=== PATIENT | female | born 1965 | race Caucasian/White ===

== ENCOUNTER 2022-05-25 07:01 | Outpatient (CLI) | payer OTHER, SELFPAY ==
--- NOTE | 2022-05-25 07:15 | CRLHL7_ITS ---
For Patients: As a result of the Century Cures Act, medical imaging exams and procedure reports are released immediately into your electronic medical record. You may view this report before your referring provider. If you have questions, please contact your health care provider. INDICATION: Left leg pain. COMPARISON: 02/29/2020. TECHNIQUE: Sagittal T1, T2, and STIR sequences. Axial T1 and T2 weighted sequences. FINDINGS: Compared to the previous exam, interval postop changes of diskectomy interbody fusion L3-4 and L4-5 with posterior mary and transpedicular screw fixation L3-L5. Improved to near anatomic alignment at L3-4 with reduction of previously noted anterolisthesis. Laminectomies at L3-4 and L4-5. Edema and likely granulation tissue within the posterior soft tissues of the operative bed. T12-L1: No spinal canal or neural foraminal narrowing. L1-2: Mild disc generation. No spinal canal or neural foraminal narrowing. L2-3: Mild disc degeneration diffuse disc bulge centered to the left. No narrowing of spinal canal. Mild narrowing of the left neural foramen. No narrowing of the right neural foramen. L3-4: Postoperative changes. Spinal canal is decompressed by laminectomy. No neural foraminal narrowing. L4-5: Postoperative changes. Spinal canal is decompressed by laminectomy. No neural foraminal narrowing. L5-S1: Disc degeneration and diffuse disc bulge. Superimposed central left paracentral disc herniation measures approximately 3 mm in short axis. Mild narrowing of the spinal canal. Left subarticular recess narrowing with potential impingement of the traversing left S1 nerve root. No narrowing of the right neural foramen. Mild narrowing of the left neural foramen. Mild facet arthropathy. Mild degenerative changes of the SI joints. IMPRESSION: 1. Interval postop changes L3-L5. 2. Normal alignment. No fractures 3. At L2-3, mild narrowing of the left neural foramina 4. At L5-S1, disc degeneration and diffuse disc bulge. Central and left paracentral disc herniation. Mild narrowing of the spinal canal. Left subarticular recess narrowing with potential impingement of the traversing left S1 nerve root. Mild narrowing of the left neuroforamen Dictated by Paulie Shin MD @ 05/25/2022 12:57:45 PM (Electronically Signed)
== END 2022-05-25 07:02 | disposition home or self-care (01) ==
LOC: MRI 07:03
PROVIDERS: PCP Internal Medicine; Visit Provider Orthopaedic Surgery Orthopaedic Surgery of the Spine
DX: M79.605 Pain in left leg (principal); M51.26 Other intervertebral disc displacement, lumbar region; M51.37 Other intervertebral disc degeneration, lumbosacral region; M51.27 Other intervertebral disc displacement, lumbosacral region
CPT/HCPCS: 72148

== ENCOUNTER 2022-07-12 09:17 | Outpatient (CLI) | payer OTHER, SELFPAY ==
[2022-07-12 12:13] LABS: Cholesterol* 211 mg/dL (90-199); Glucose* 107 mg/dL (60-115); HDL Cholesterol* 47 mg/dL (>=50); LDL Cholesterol Calculated 144 mg/dL (<100); Triglycerides* 100 mg/dL (40-149)
== END 2022-07-12 09:18 | disposition home or self-care (01) ==
LOC: NFLDREF 09:18
PROVIDERS: PCP Internal Medicine; Visit Provider Internal Medicine
DX: E78.5 Hyperlipidemia, unspecified (principal); R73.03 Prediabetes
CPT/HCPCS: 80061; 82947

== ENCOUNTER 2022-11-01 13:02 | Outpatient (CLI) | payer OTHER, SELFPAY ==
--- NOTE | 2022-11-01 13:00 | CRLHL7_ITS ---
For Patients: As a result of the Century Cures Act, medical imaging exams and procedure reports are released immediately into your electronic medical record. You may view this report before your referring provider. If you have questions, please contact your health care provider. BILATERAL SCREENING MAMMOGRAM WITH COMPUTER-AIDED DETECTION AND TOMOSYNTHESIS TECHNIQUE: CC and MLO views were obtained. These mammographic images have been obtained using full-field digital technique. These mammographic images were interpreted with the benefit of computer-aided detection. Breast Tomosynthesis was used in this interpretation. COMPARISON FILM: 05/05/21, 06/26/19, 05/09/18. FINDINGS: There are scattered areas of fibroglandular density IMPRESSION: There is no radiographic evidence for malignancy. ASSESSMENT: BI-RADS Category 1: Negative RECOMMENDATION: Routine screening mammogram in 1 year. A lay language report of this examination will be provided to the patient. Marc Castañeda M.D. Diagnostic Radiologist [email or web address] CHRISTI/Dictated by: Marc Castañeda MD @ 11/02/2022 1:01:00 PM (Electronically Signed)
--- OUTSIDE RECORDS SUMMARY | 2022-11-01 13:05 | XMS_ITS | Continuity of Care Document ---
Author Name Unknown Organization [facility] Address [address] [place] [address] Phone Care Team Providers Care International Bank Manager Name Role Phone Gricel WINKLRE, PhD, Greg Unavailable Unavai lable Allergies, Adverse Reactions, Alerts Substance Reaction Status Criticality amoxicillin rash Active No Information Sulfa (Sulfonamide Antibiotics) rash Active No Information Medications Medication Instructions Dosage Effective Dates (start - stop) Status Comments SEROQUEL (unknown strength) Not Available - Active ALBUTEROL SULFATE (unknown strength) Not Available - Active PAROXETINE HCL (unknown strength) Not Available - Active QVAR REDIHALER (unknown strength) Not Available - Active Procedures Procedure Date Office/Outpatient Visit,Est, Mod 2021 Office/Outpatient Visit,Est, Mod 2020 Office/Outpatient Visit,Est, Mod 2020 Postop Followup Visit TLIF - Includes PSF at the same level De TLIF - Additional Level(s) Includes PSF at the same level Posterior Instrumentation, 3-6 Segments PEEK/ Cage/ Implant, For Interbody Fusio n Autograft, From Same Incision 0 Allograft, Morcelized, and/or BMP Pre Op Office/Outpatient Visit, 020 OFFICE/OUTPATIENT VISIT EST Phone Office/Outpatient Visit,New, Mod 2019 X-Ray Exam Lwr Spine, Min 4 Views Advance Directives Directive Yes / No Effective Date File Name No Information Encounters Encounter Description Practice Location Reason(s) For Visit Diagnoses Date Provider Providers Copied on Encounter Office/Outpat ient Visit,Est, Mod [facility], [address], [place], [place], [id number], [place] tel:[phone] [facility] Arthrodesis status [address] [facility], [address], [place], [address], [place]. [phone] [facility] [address], [address]. tel:[phone] Office/Outpat ient Visit,Est, Mod [facility], [address], [place], [place], [address], [place] tel:[phone] [facility] Arthrodesis status 1 Gricel Garza. [facility], [address], [place], [address], [place]. tel:[phone] Referring Provider: Aleks Walker [facility] [address] [place], [address]. tel:[phone] Office/Outpat ient Visit,Est, Mod [facility], [address], [place], [id number], [place] tel:[phone] [facility] Arthrodesis status [address] [facility], [address], [place], [address], [place]. tel:[phone] Referring Provider: Aleks Walker [facility] [address] [place], [address]. tel:[phone] [facility], [address], [place], [place], [address], [place] tel:[phone] [facility] Arthrodesis status [address] [facility], [address], [place], [address], [place]. tel:[phone] Referring Provider: Aleks Walker [address], [address]. tel:[phone] [facility], [address], [place], [place], [address], [place] tel:[phone] [facility] No Information [address] [facility], [address], [place], [address], [place]. tel:[phone] Referring Provider: Aleks Walker [address], [address]. tel:[phone] Pre Op Office/Outpat ient Visit, [facility], [address], [facility] [place], [id number], [place] tel:[phone] [facility] Spinal stenosis, lumbar region with neurogenic claudication [address] [facility], [address], [place], [address], [place]. [phone] Referring Provider: Aleks Walker [address], [address]. tel:[phone] [facility], [address], [facility] [place], [address], [place] tel:[phone] [facility] No Information [address] [facility], [address], [place], [address], [place]. [phone] Referring Provider: Aleks Walker [address], [address]. tel:[phone] OFFICE/OUTPAT IENT VISIT EST Phone [facility], [address], [place], [place], [id number], [place] tel:[phone] [facility] No Information [address] [facility], [address], [place], [address], [place]. tel:[phone] Referring Provider: Aleks Walker [facility] [address] [place], [address]. tel:[phone] Office/Outpat ient Visit,New, [facility], [address], [place], [address], [place] tel:[phone] [facility] Radiculopathy , lumbar region [address] [facility], [address], [place], [address], [place]. tel:[phone] Referring Provider: Aleks Walker [facility] [address] [place], [address]. tel:[phone] Family History Family Member Type Diagnosis Age At Onset No Information Payers Payer name Insurance type Covered alliance party ID Pro wise(s) [facility] [id number] Social History Type Description Quantity Date Captured Comments Alcohol Use Details Unknown Caffeine Use Details Unknown Tobacco Use Status No Information Smoking Status Former smoker Non-Smoking Tobacco Use Details : No Details Available : No Details Available Sex Female Vital Signs Date / Time: Height Weight BMI Pulse Rate Blood Pressure Temperature Respiratory Rate Body Surface Area Head Circumference Head Circ. Percentile Wt./Shawn. Percentile BMI percentile Pulse Ox Inhaled Ox 8:31 AM 65.00 in 88.451 kg (195.00 lbs) 32.4 5 kg/m eter (2) Chief Complaint And Reason For Visit No Information Reason For Referral Reason For Referral No Information Plan Of Treatment Date Type Action Status No Information History Of Present Illness Encounter Date Complaint History Of Prese nt Illness No Information Functional Status Date Functional Assessmen t No Information Instructions Date Instruction Additional Infor mation No Information Assessments Type Assessment Date assessment Arthrodesis status Patient Care Teams Name Effective Dates (start - stop) Status Members No Information
== END 2022-11-01 13:03 | disposition home or self-care (01) ==
PROVIDERS: PCP Internal Medicine; Visit Provider Internal Medicine
DX: Z12.31 Encounter for screening mammogram for malignant neoplasm of breast (principal)
CPT/HCPCS: 77063; 77067

== ENCOUNTER 2023-10-19 07:56 | Outpatient (CLI) | payer OTHER, SELFPAY ==
--- OUTSIDE RECORDS SUMMARY | 2023-10-20 10:24 | XMS_ITS | Continuity of Care Document ---
Author Organization [facility] Address [address] [place] [address] Phone Care Team Providers Care Furnace Firer Name Role Phone Gricel WINKLER, PhD, Greg Unavailable Unavai lable Allergies, Adverse Reactions, Alerts Substance Reaction Status Criticality amoxicillin rash Active No Information Sulfa (Sulfonamide Antibiotics) rash Active No Information Medications Medication Instructions Dosage Effective Dates (start - stop) Status Comments SEROQUEL (unknown strength) Not Available - Active QVAR REDIHALER (unknown strength) Not Available - Active PAROXETINE HCL (unknown strength) Not Available - Active ALBUTEROL SULFATE (unknown strength) Not Available - Active Procedures [...] C, [address], [place], [place], [id number], [place] tel:[phone] [facility] Arthrodesis status 2 Gricel Garza. [facility] [place], [address], [place], [address], [place]. [phone] Referring Provider: Aleks García, [employer] [facility], [place], [address]. tel:[phone] Office/Outpat ient Visit,Est, Mod [facility], [address], [place], [place], [id number], [place] tel:[phone] [facility] Arthrodesis status 1 Gricel Garza. [facility], [address], [place], [address], [place]. tel:[phone] Referring Provider: [facility], [place], [address]. tel:[phone] Office/Outpat ient Visit,Est, Mod [facility], [address], [place], [place], [address], [place] tel:[phone] [facility] Arthrodesis status 1 Gricel Garza. [facility] [place], [address], [place], [address], [place]. tel:[phone] Referring Provider: [facility] [employer] [facility], [place], [address]. tel:[phone] [facility], [address], [place], [id number], [place] tel:[phone] [facility] Arthrodesis status 1 Gricel Garza. [facility] [place], [address], [place], [address], [place]. [phone] Referring Provider: Giovanni Hsieh [facility], [place], [address]. tel:[phone] [facility], [address], [place], [address], [place] tel:[phone] [facility] No Information 0 Gricel Garza. [facility] [place], [address], [place], [address], [place]. tel:[phone] Referring Provider: Giovanni Hsieh [address], [place], [address]. tel:[phone] Pre Op Office/Outpat ient Visit, [facility], [address], [place], [address], [place] tel:[phone] [facility] Spinal stenosis, lumbar region with neurogenic claudication 0 Gricel Garza. [facility] [place], [address], [place], [address], [place]. [phone] Referring Provider: Giovanni Hsieh [facility], [place], [address]. tel:[phone] [facility], [address], [place], [address], [place] tel:[phone] [facility] No Information 0 Gricel Garza. [facility], [address], [place], [address], [place]. [phone] Referring Provider: Giovanni Hsieh [facility], [place], [address]. tel:[phone] OFFICE/OUTPAT IENT VISIT EST Phone [facility], [address], [place], [address], [place] tel:[phone] [facility] No Information 0 Gricel Garza. [facility], [address], [place], [address], [place]. tel:[phone] Referring Provider: Aleks García, [employer] [facility] [address] , [place], [address]. tel:[phone] Office/Outpat ient Visit,New, Mod [facility], [address], [place], [place], [address], [place] tel:[phone] [facility] Radiculopathy , lumbar region 0 Gricle Garza. [facility], [address], [place], [address], [place]. tel:[phone] Referring Provider: Aleks García [employer] [facility] [address] , [place], [address]. tel:[phone] Family History Family Member Type Diagnosis Age At Onset No Information Payers Payer name Insurance type Covered libertarian ID Pro wise(s) [id number] Social History Type Description Quantity Date Captured [...] For Referral Reason For Referral No Information History Of Present Illness Encounter Date Complaint History Of Prese nt Illness No Information Functional Status Date Functional Assessmen t No Information Instructions Date Instruction Additional Infor mation No Information Assessments Type Assessment Date assessment Arthrodesis status Patient Care Teams Name Effective Dates (start - stop) Status Members No Information
--- OUTSIDE RECORDS SUMMARY | 2023-10-20 10:24 | XMS_ITS | Clinical Summary ---
Author Organization [employer] [facility] Address [place], [place] [address] Care Team Providers Care Shape Brick Molder Name Role Phone Shazia Sloan MD Primary Care Provider [phone] Allergies Active Allergy Reactions Criticality Noted Date Comments Amoxicillin Rash 12/22/2007 Sulfa (Sulfonamide Antibiotics) Rash 05/2007 Medications Medication Sig Dispensed Refills Start Date End Date Status albuterol HFA (PRO-AIR,VENTOLIN,PRO VENTIL) 90 mcg/actuation inhaler Inhale 2 Puffs by mouth 4 times daily if needed. 0 01/13/2015 Active QNASL 80 mcg/actuation HFAA Inhale 1 Tropic in the nostril(s) once daily if needed (for seasonal allergy relief). 07/04/2017 Active PARoxetine (PAXIL) 40 mg tablet Take 60 mg by mouth at bedtime. Uses 1?? of the 40 mg tablet for 60 mg dose Active beclomethasone 40 mcg/each actuation (QVAR) 40 mcg inhaler Inhale 2 Puffs by mouth 2 times daily. Active metroNIDAZOLE (METROGEL) 1 % gel Apply topically to affected area(s) once daily if needed for Other (Specify) (for rosacea outbreaks). Active QUEtiapine (SEROQUEL) 25 mg tablet Take 25 mg by mouth at bedtime. 06/28/2021 Active Active Problems Problem Noted Date Diagnosed Date Borderline hyperlipidemia 05/19/2020 Cough variant asthma 05/19/2020 History of hypothyroidism 05/19/2020 Lumbar stenosis 05/19/2020 Obstructive sleep apnea syndrome 04/10/2012 Obesity 03/03/2011 Depression 12/02/2008 Irritable bowel syndrome 12/02/2008 Migraine headache 12/02/2008 Immunizations Name Administration Dates Next Due DTP 07/22/1995,06/18/1967,1965 ,1965 HepA-HepB (Twinrix) 06/29/2007,01/26/2007,200606/28/2007 MMR 05/23/1969,10/06/1966 Oral Polio Vaccine 05/04/1967,02/26/1966, 966,1965 Td (Age >=7 Years) 01/21/1981 Social History Tobacco Use Types Packs/Day Years Used Date Smoking Tobacco: Former Cigarettes Q uit: 05/23/2000 Smokeless Tobacco: Never Tobacco Cessation:Counseling Given: Yes Alcohol Use Standard Drinks/Week Comments Yes 0 (1 standard drink = 0.6 oz pur e alcohol) social- 1 to 2 on the weekends Social Connections Answer Date Recorded Frequency of Communication with Friends and Fami ly Not on file 05/13/2021 Financial Resource Strain Answer Date R ecorded Difficulty of Paying Living Expenses Not on file 05/13/2021 Difficulty of Paying Living Expenses Not on file 05/13/2021 Sex and Gender Information Value Date Recorded Sex Assigned at Female 04/10/2020 8:48 AM NEW ORDER CLERK Gender Identity Female 04/10/2020 8:48 AM NEW ORDER CLERK Sexual Orientation Straight 04/10/2020 8: 48 AM NEW ORDER CLERK Obstetrics History Last Filed Vital Signs Vital Sign Reading Time Taken Comments Blood Pressure 125/80 08/19/2021 8:36 AM CDT tow er Pulse 82 08/19/2021 8:36 AM CDT Temperature 37 ??C (98.6 ??F) 05/22/2020 9:23 AM NEW ORDER CLERK Respiratory Rate 16 05/22/2020 9:23 AM NEW ORDER CLERK Oxygen Saturation 97% 08/19/2021 8:36 AM CDT Inhaled Oxygen Concentration - - Weight 91.7 kg (202 lb 3.2 oz) 08/19/2021 8:36 A M CDT Height 165.1 cm (5' 5) 05/19/2020 8:30 AM NEW ORDER CLERK Body Mass Index 33.65 05/19/2020 8:30 AM NEW ORDER CLERK Plan of Treatment Health Maintenance Due Date Last Done Comments Tdap 1976 Depression screening for age 12+ 1977 HIV for age 15-65 1980 Hepatitis C screening for age 18-79 1983 Tetanus booster 01/21/1991 01/21/1981 Lipids for age 45-75 2010 Mammogram for age 45-75 2010 07/11/19 09, 04/06/2005, 04/06/2005 Zoster (shingles) series for age 50+ (1 of 2) 2015 Colonoscopy through age 75 12/27/2017 12/28/2007 BMI (ht and wt on same day) for age 18+ 08/01/2018 08/01/2017, 09/15/2015 Pap test for age 21-65 06/26/2022 , 06/26/2019, 07/28/2015, Additional history exists COVID-19 vaccine series (2022-24 season) 2023 08/31/2020, 08/10/2020 Influenza for age 50-64 01/22/2024 Pneumococcal series for age 6-64 Aged Out No longer eligible based on patient's age to complete this topic Medical Devices Implanted Type Area Universal Branch Consultant Device Identifier Shelf Expiration Date Model / Serial / Lot [id number] 1-4mm 60cc Medtronic Fine Canclls Freeze Dried Implanted:Qty: 1 on 05/19/2020 by Greg Monsalve MD at [facility] Explanted:at [facility] (Quantity not on file) Spine Medtronic Spine/Ortho 10/29/2024 [id number] / [id number] / Bone 1-4mm 30cc Medtronic Chips Canclls Freeze Dried - [id number] Implanted:Qty: 1 on 05/19/2020 by Greg Monsalve MD at [facility] Explanted:at [facility] (Quantity not on file) Spine Medtronic Spine/Ortho 11/25/2024 [id number] / [id number] / Creo Threaded Locking Clip Implanted:Qty: 6 on 05/19/2020 by Greg Monsalve MD at [facility] Spine [id number] / / Description:CREO THREADED LO CKING CLIP 7.5x45mm Creo Threaded Implanted:Qty: 2 on 05/19/2020 by Greg Monsalve MD at [facility] Spine [id number] / / Description:7.5X45MM CREO TH READED 6.5x45mm Creo Threaded Implanted:Qty: 1 on 05/19/2020 by Greg Monaslve MD at [facility] Spine [id number] / / Description:6.5X45MM CREO TH READED 7.5x50mm Creo Threaded Implanted:Qty: 3 on 05/19/2020 by Greg Monsalve MD at [facility] Spine [id number] / / Description:7.5X50MM CREO TH READED 70mm Cvd Ti Alloy Juan C Implanted:Qty: 2 on 05/19/2020 by Greg Monsalve MD at [facility] Spine [id number] / / Description:70MM CVD TI ALLO Y JUAN C Sustain Arch 9mm Interbody Implanted:Qty: 2 on 05/19/2020 by Greg Monsalve MD at [facility] Spine [id number] / / Description:SUSTAIN ARCH 9MM INTERBODY Procedures Procedure Name Priority Date/Time Associated Diagnosis Comments GIS COORDINATOR THIN PREP PAP SCREEN IMAGED Routine 06/26/2019 8:15 AM NEW ORDER CLERK SCAN-MAMMOGRAPHY REPORT 07/11/2008 12:00 AM NEW ORDER CLERK from Last 3 Months or Most Recently Relevant to Health Maintenance Results * GIS COORDINATOR THIN PREP PAP SCREEN IMAGED (06/26/2019 8:15 AM NEW ORDER CLERK) Case Report Gynecologic Cytology Report ? Case: [id number] ? Authorizing Provider: ??Shazia Sloan MD ?Collected: ? 06/26/2019 0815 ? Ordering Location: ? [facility] ?Received: ?06/26/2019 1742 ? First Screen: ?Rosy Lee ? Specimen: ?GIS COORDINATOR ThinPrep Vial Screening, Cervical/Vaginal ? 07/05/2019 10:55 AM [facility] INTERPRETATION/ RESULT NEGATIVE FOR INTRAEPITHELIAL LESION OR MALIGNANCY (NIL) (none) 07/05/2019 10:55 AM [facility] IMEN ADEQUACY Satisfactory for evaluation Endocervical cells cannot be evaluated due to severe atrophy 07/05/2019 10:55 AM [facility] HPV REQUEST HPV and PAP 07/05/2019 10:55 AM [facility] Date of LMP 07/05/2019 10:55 AM [facility] Comment:2004 Last Pap Date 07/28/2015 07/05/2019 10:55 AM [facility] Last Pap Result NIL 0 10:55 AM [facility] Menstrual Status 07/05/2019 10:55 AM [facility] Comment:menopause Additional Information 07/05/2019 10:55 AM [facility] Comment: Interpreted at [facility] Tactilize [facility] - [address], [place] [address] Automated Review Successful 07/05/2019 10:55 AM [facility] Comment:Specimen processed s uccessfully by automated congregational care pastor device, ThinPrep Imaging System, [employer] ANCILLARY TESTING GIS COORDINATOR HPV Ordered, Please see separate report 07/05/2019 10:55 AM NEW ORDER CLERK [facility] Note The pap test is a screening technique, not a diagnostic procedure. It is used primarily to screen for squamous cancers and precursor lesions. Published studies have shown that it is subject to both false negative and false positive results. The pap test should not be used as the sole means to diagnose or exclude pre-malignant and malignant lesions. 07/05/2019 10:55 AM NEW ORDER CLERK [facility] Other (Cervical/Vagina l) 06/26/2019 8:15 AM NEW ORDER CLERK 06/26/2019 5:42 PM NEW ORDER CLERK Shazia Sloan MD PATHOLOGY/CYTOLOGY [facility] [address] [place] [address], * SCAN-MAMMOGRAPHY REPORT (07/11/2008 12:00 AM NEW ORDER CLERK) Anatomical Region Laterality Modality Other Narrative Procedure Note Scanner - 07/11/2008 12:00 AM NEW ORDER CLERK Scanner OTHER from Last 3 Months or Most Recently Relevant to Health Maintenance Advance Directives * Full Code (Latest Code Status on File) Date Activated Date Inactivated Comments 05/19/2020 6:13 PM 05/22/2020 12:41 PM Question Answer Comments Code Status Discussion: Per Existing Order Care Teams Shape Brick Molder Relationship Specialty Start Date End Date Shazia Sloan MD [address] [place] [address] PCP - General Internal Medicine 12/26/14
== END 2023-10-19 07:57 | disposition home or self-care (01) ==
LOC: NFLDREF 10-20 10:23
PROVIDERS: PCP Internal Medicine; Referring Provider Internal Medicine; Visit Provider Internal Medicine
DX: E78.5 Hyperlipidemia, unspecified (principal); R73.03 Prediabetes
CPT/HCPCS: 80061; 82947

== ENCOUNTER 2024-01-13 07:45 | Outpatient (CLI) | payer OTHER, SELFPAY ==
--- OUTSIDE RECORDS SUMMARY | 2024-01-13 07:47 | XMS_ITS | Clinical Summary ---
Author Organization [facility] Address [address] [place] [address] Care Team Providers Care Job Analysis Manager Name Role Phone Unavailable Primary Care Provider Unavailabl e Source Comments Patient records contain information from all sites at [facility]. For routine questions regarding patient records, call [phone] during business hours, M-F 8:00 AM - 5:00 PM Central Time. Record requests for emergency care only can be directed to [phone] at any time.[facility] Allergies Active Allergy Reactions Criticality Noted Date Comments Amoxicillin Rash 12/22/2007 Penicillin V Rash Low 10/24/2023 Sulfa (Sulfonamide Antibiotics) Rash 05/2007 Medications Medication Sig Dispensed Refills Start Date End Date Status albuterol (PROVENTIL HFA,VENTOLIN HFA) 90 mcg/actuation inhaler Inhale 2 puffs as needed. 01/13/2015 Active QVAR REDIHALER 40 mcg/actuation inhaler 2 (two) times a day. 03/07/2018 Active QNASL 80 mcg/actuation nasal spray 2 (two) times a day. 03/07/2018 Active cefuroxime (CEFTIN) 500 mg tablet daily. 04/10/2018 Active oxyCODONE (ROXICODONE) 5 mg immediate release tablet as needed. 03/31/2018 Active PARoxetine (PAXIL) 40 mg tablet Take 40 mg by mouth daily. 1.5 tabs 10/26/2014 Active metroNIDAZOLE (METROGEL) 1 % gel Apply topically every other day. 60 g 06/13/2019 Active QUEtiapine (SEROquel) 25 mg tablet Take 25 mg by mouth at bedtime. 12.5 Half tablet at night 04/12/2021 Active Encounters Date Type Department Care Team Description 11/08/2023 3:15 PM CDT Office Visit Department of Dermatology in [address] [phone] Olu Riojas M.D. Nevi Multiple (Primary Dx); Keratosis Seborrheic Discharge Disposition: Home or Self Care from Last 3 Months Social History Tobacco Use Types Packs/Day Years Used Date Smoking Tobacco: Former Smokeless Tobacco: Never Alcohol Use Standard Drinks/Week Comments Yes 2 (1 standard drink = 0.6 oz pur e alcohol) [facility] Utilities Answer Date Recorded In the past 12 months has e Trampoline, gas, oil, or water [employer] threatened to shut off services in your home? No 11/08/2023 Humiliation, Afraid, Rape, and Kick questionnair e Answer Date Recorded Within the last year, have y ou been afraid of your partner or ex-partner? No 06/16/2021 Within the last year, have y ou been humiliated or emotionally abused in other ways by your partner or ex-partner? No Within the last year, have y ou been kicked, hit, slapped, or otherwise physically hurt by your partner or ex-partner? No 06/16/2021 Within the last year, have y ou been raped or forced to have any kind of sexual activity by your partner or ex-partner? No 06/16/2021 Social Connection and Isolat ion Panel [NHANES] Answer Date Recorded In a typical week, how many times do you talk on the phone with family, friends, or neighbors? More than three times a week 06/16/2021 How often do you get togethe r with friends or relatives? More than three times a week 06/16/2021 How often do you attend chur ch or taoism services? More than 4 times per year 06/16/2021 Do you belong to any clubs o r organizations such as nondenominational groups, unions, fraternal or athletic groups, or school groups? Yes 06/16/2021 How often do you attend meet ings of the clubs or organizations you belong to? More than 4 times per year 06/16/2021 Are you , , di vorced, , never , or living with a partner? 06/16/2021 AUDIT-C Answer Date Recorded Q1: How often do you have a drink containing alc ohol? 2-4 times a month 06/16/2021 Q2: How many drinks containi ng alcohol do you have on a typical day when you are drinking? 1 or 2 06/16/2021 Q3: How often do you have si x or more drinks on one occasion? Less than monthly 06/16/2021 Overall Financial Resource Strain (CARDIA) Answe r Date Recorded How hard is it for you to pa y for the very basics like food, housing, medical care, and heating? Not very hard 06/16/2021 [facility] - Occupational Stress Questionnaire Answer Date Recorded Do you feel stress - tense, restless, nervous, or anxious, or unable to sleep at night because your mind is troubled all the time - these days? Only a little 06/16/2021 Exercise Vital Sign Answer Date Recorde d On average, how many days pe r week do you engage in moderate to strenuous exercise (like a brisk walk)? 2 days 11/08/2023 On average, how many minutes do you engage in exercise at this level? 20 min 11/08/2023 Hunger Vital Sign Answer Date Recorded Within the past 12 months, y ou worried that your food would run out before you got the money to buy more. Never true 11/08/19 24 Within the past 12 months, t he food you bought just didn't last and you didn't have money to get more. Never true 11/08/2023 PRAPARE - Transportation Answer Date Re corded In the past 12 months, has l ack of transportation kept you from medical appointments or from getting medications? No 10/21 In the past 12 months, has l ack of transportation kept you from meetings, work, or from getting things needed for daily living? No 11/08/2023 Nutrition Answer Date Recorded On average, how many serving s of fruits and vegetables do you eat per day (serving size is equal to 1 cup or approximately the size of a tennis ball)? 3-5 11/08/2023 Dental Answer Date Recorded Dental: Regular Dentist Yes 01/20/20 21 Employment Answer Date Recorded Employment status Employed and actively working without restrictions 11/08/2023 Housing Stability Answer Date Recorded What is your living situation today? I have a st ely place to live 11/08/2023 Education Answer Date Recorded What is the highest level of school you have completed or the highest degree you have received? Some college, no degree 01/19/2021 Sex and Gender Information Value Date Recorded Sex Assigned at Female 03/27/2020 6:44 AM FIBER GLASS WORKER Gender Identity Female 03/27/2020 6:44 AM FIBER GLASS WORKER Sexual Orientation Straight 03/27/2020 6: 44 AM FIBER GLASS WORKER Plan of Treatment Health Maintenance Due Date Last Done Comments CT Colonography 1965 Cologuard 1965 Colonoscopy 1965 Colorectal Cancer Screening 1965 FIT 1965 Fasting Glucose for Diabetes Screening 1965 HIV Screening 1965 Hepatitis C Screening 1965 Lipid (Cholesterol) Screening 1965 Mammogram 1965 COVID-19 Vaccine ( season) 2023 08/31/2020, 08/10/2020 Depression Screening (Annual PHQ-2) 05/23/2023 Influenza Vaccine (#1) 2024 , 03/10/2021, 02/21/2020, Additional history exists Cervical Cancer Screening 10/23/2026 10/24/2023, 08/2019 DTaP,Tdap,and Td Vaccines (8 - Td or Tdap) 08/09/2032 08/09/2022, 03/15/2012, 07/16/2002, Additional history exists Hepatitis B Vaccines Completed 06/29/2007, 01/26/2007, 11/07/2006 Pneumococcal vaccine (0-64 years) Aged Out 03/06/2015 No longer eligible based on patient's age to complete this topic Zoster Vaccines Completed 02/21/2020, 06/26/2019 [id number] [place] [id number]
--- OUTSIDE RECORDS SUMMARY | 2024-01-13 07:47 | XMS_ITS | Encounter Summary ---
Author Organization [facility] Address [address] [place] [address] Care Team Providers Care Credit Card Control Clerk Name Role Phone Unavailable Primary Care Provider Unavailabl e Reason for Visit * Reason Comments Follow-up Skin Check * Appointment Request (Routine) - Closed Specialty Diagnoses / Procedures Referred By Isaac gan Referred To Contact Dermatology Referral ID Status Reason Start Date Expiration Date Visits Re quested Visits Authorized [id number] Closed 09/09/2023 09/08/2024 1 1 Encounter Details Date Type Department Care Team (Late st Contact Info) Description 11/08/2023 3:15 PM CDT Office Visit Department of Dermatology in [address] [phone] Olu Riojas M.D. [address] [place] [address] Nevi Multiple (Primary Dx); Keratosis Seborrheic Discharge Disposition: Home or Self Care Social History Tobacco Use Types Packs/Day Years Used Date Smoking Tobacco: Former Smokeless Tobacco: Never Alcohol Use Standard Drinks/Week Comments Yes 2 (1 standard drink = 0.6 oz pur e alcohol) [facility] Utilities Answer Date Recorded In the past 12 months has th e electric, gas, oil, or water company threatened to shut off services in your [...] 06/16/2021 How often do you attend chur or scientologist services? More than 4 times per year 06/16/2021 Do you belong to any clubs o r organizations such as adventist groups, unions, fraternal or athletic groups, or [...] care, and heating? Not very hard 06/16/2021 [facility] of Occupat ional Health - Occupational Stress [...] Date Recorded Dental: Regular Dentist Yes 01/20/20 Employment Answer Date Recorded Employment status Employed and actively working without restrictions 11/08/2023 Housing Stability Answer Date Recorded What is your living situation today? [facility] 11/08/2023 Education Answer Date Recorded What is the highest level of school you have completed or the highest degree you have received? Some college, no degree 01/19/2021 Sex and Gender Information Value Date Recorded Sex Assigned at Female 03/27/2020 6:44 AM DAM OPERATOR Gender Identity Female 03/27/2020 6:44 AM DAM OPERATOR Sexual Orientation Straight 03/27/2020 6: 44 AM DAM OPERATOR documented as of this encounter Progress Notes * Olu Riojas M.D. - 11/08/2023 3:15 PM CDT SUBJECTIVE CHIEF COMPLAINT / REASON FOR VISIT Full skin cancer screening HISTORY OF PRESENT ILLNESS Mariposa Rizzo is a pleasant 58 y.o. female who presents for a full skin cancer screening. The patient was last seen by me in Dermatology clinic on . She denies a personal history of skin cancer or family history for melanoma. She uses sunscreen. She denies any new or changing lesionstoday. MEDICAL HISTORY Negative for skin cancer FAMILY HISTORY Negative for melanoma OBJECTIVE PHYSICAL EXAMINATION General: Awake, alert, in no acute distress, and with appropriate affect. Eyes: No scleral injection or icterus. No eyelid abnormalities. Lymph: No lower extremity edema. Skin: I have examined the scalp, face, neck, chest, abdomen, back, bilateral upper extremities, andbilateral lower extremities. My scribe (Yesica) served as a cracking still operator for the entirety of the exam. Examination of the face, trunk and extremities reveals multiple benign-appearing nevi, lentigines and seborrheic keratoses. Examination today reveals no suspicious lesions for skin cancer. ASSESSMENT / PLAN #1 Face, trunk and extremities: Multiple nevi and lentigines The ABCDE criteria for melanoma was reviewed with the patient. None of the patient's nevi reach theclinical threshold for biopsy. I recommend continued sun protection, self-skin examinations, and observation. Should any of the patient's nevi change in size, color, texture, or shape or develop symptoms such as itching or bleeding, I recommend an immediate return visit for reassessment. #2 Face, trunk and extremities: Seborrheic keratosis The benign nature of the skin lesion(s) was discussed with the patient. No treatment is required. Irecommend continued observation. Should this lesion change in size, color, texture, or shape or develop symptoms such as itching or bleeding, I recommend an immediate return visit for reassessment. PATIENT EDUCATION: Ready to learn. No apparent learning barriers were identified. Learning preferences include listening. Explained diagnosis and treatment plan; patient/guardian of patient expressed understanding of the content. By signing my name below, I, Yesica Darnell, attest that this documentation has been prepared underthe direction and in the presence of Olu Riojas M.D. Electronically Signed: june Luo. 11/08/2023. 3:47 PM CDT. Olu Mcclure M.D., personally performed the services described in this documentation. All medical record entries made by the scribe were at my direction and in my presence. I have reviewed the chart and discharge instructions (if applicable) and agree that the record reflects my personal performance and is accurate and complete. Olu Riojas M.D. Scribed for Olu Riojas M.D. by Yesica Darnell, on 11/08/2023, 4:03 PM CDT. documented in this encounter Plan of Treatment Not on file documented as of this encounter Visit Diagnoses Diagnosis Nevi Multiple- Primary Keratosis Seborrheic documented in this encounter
--- OUTSIDE RECORDS SUMMARY | 2024-01-13 07:47 | XMS_ITS | Clinical Summary ---
Author Organization [facility] Address [place], [place] [address] Care Team Providers Care Foil Cutter Name Role Phone Shazia Sloan MD Primary Care Provider [phone] Allergies Active Allergy Reactions Criticality Noted Date Comments Amoxicillin Rash 12/22/2007 Sulfa (Sulfonamide Antibiotics) Rash 05/2007 Medications Medication Sig Dispensed Refills Start Date End Date Status albuterol HFA (PRO-AIR,VENTOLIN,PRO VENTIL) 90 mcg/actuation inhaler Inhale 2 Puffs by mouth 4 times daily if needed. 0 01/13/2015 Active QNASL 80 mcg/actuation HFAA Inhale 1 [place] in the nostril(s) once daily if needed [...] Irritable bowel syndrome 12/02/2008 Migraine headache 12/02/2008 Encounters Date Type Department Care Team Description 10/24/2023 Lab Requisition [facility] [phone] Shazia Sloan MD from Last 3 Months Immunizations Name Administration Dates Next Due DTP [...] Sex Assigned at Female 04/10/2020 8:48 AM SENIOR LEAD SOFTWARE ENGINEER Gender Identity Female 04/10/2020 8:48 AM SENIOR LEAD SOFTWARE ENGINEER Sexual Orientation Straight 04/10/2020 8: 48 AM SENIOR LEAD SOFTWARE ENGINEER Obstetrics History Last Filed Vital Signs Vital Sign Reading Time Taken Comments Blood Pressure 125/80 08/19/2021 8:36 AM CDT tow er Pulse 82 08/19/2021 8:36 AM CDT Temperature 37 ??C (98.6 ??F) 05/22/2020 9:23 AM SENIOR LEAD SOFTWARE ENGINEER Respiratory Rate 16 05/22/2020 9:23 AM SENIOR LEAD SOFTWARE ENGINEER Oxygen Saturation 97% 08/19/2021 8:36 AM CDT Inhaled Oxygen Concentration - - Weight 91.7 kg (202 lb 3.2 oz) 08/19/2021 8:36 A M CDT Height 165.1 cm (5' 5) 05/19/2020 8:30 AM SENIOR LEAD SOFTWARE ENGINEER Body Mass Index 33.65 05/19/2020 8:30 AM SENIOR LEAD SOFTWARE ENGINEER Plan of Treatment Health Maintenance Due Date [...] day) for age 18+ 08/01/2018 08/01/2017, 09/15/2015 COVID-19 vaccine series ( season) 2023 08/31/2020, 08/10/2020 Influenza for age 50-64 01/22/2024 Pap test for age 21-65 10/23/2026 , 10/24/2023, 06/26/2019, Additional history exists Pneumococcal series for age 6-64 Aged Out No longer eligible based on patient's age to complete this topic Medical Devices Implanted Type Area Plant Protection Supervisor Device Identifier Shelf Expiration Date Model / Serial / Lot [id number] ne 1-4mm 60cc Medtronic Fine Canclls Freeze Dried Implanted:Qty: 1 on 05/19/2020 by Greg Monsalve MD at [facility] Explanted:at [facility] (Quantity not on file) Spine Medtronic Spine/Ortho 10/29/2024 [id number] / [id number] / Bone 1-4mm 30cc Medtronic Chips Canclls Freeze Dried - [id number] Implanted:Qty: 1 on 05/19/2020 by Greg Monsalve MD at [facility] Explanted:at [facility] (Quantity not on file) Spine Medtronic Spine/Ortho 11/25/2024 [id number] / [id number] / Creo Threaded Locking Clip Implanted:Qty: 6 on 05/19/2020 by Greg Monsalve MD at [facility] Spine [id number] / / Description:CREO THREADED LO CKING CLIP 7.5x45mm Creo Threaded Implanted:Qty: 2 on 05/19/2020 by Greg Monsalve MD at [facility] Spine [id number] / / Description:7.5X45MM CREO TH READED 6.5x45mm Creo Threaded Implanted:Qty: 1 on 05/19/2020 by Greg Monsalve MD at [facility] Spine [id number] / / Description:6.5X45MM CREO TH READED 7.5x50mm Creo Threaded Implanted:Qty: 3 on 05/19/2020 by Greg Monsalve MD at [facility] Spine [id number] / / Description:7.5X50MM CREO TH READED 70mm Cvd Ti Alloy Juan C Implanted:Qty: 2 on 05/19/2020 by Greg Monsalve MD at [facility] Spine [id number] / / Description:70MM CVD TI ALLO Y JUAN C Sustain Arch 9mm Interbody Implanted:Qty: 2 on 05/19/2020 by Greg Monsalve MD at [facility] Spine [id number] / / Description:SUSTAIN ARCH 9MM INTERBODY Procedures Procedure Name Priority Date/Time Associated Diagnosis Comments LAB TRACKING EVENT Routine 10/24/2023 8: 30 AM CDT EP TECHNOLOGIST THIN PREP PAP SCREEN IMAGED Routine 10/24/2023 8:30 AM CDT HPV THIN PREP Routine 10/24/2023 8:30 AM CDT SCAN-MAMMOGRAPHY REPORT 07/11/2008 12:00 AM SENIOR LEAD SOFTWARE ENGINEER from Last 3 Months or Most Recently Relevant to Health Maintenance Results * LAB TRACKING EVENT (10/24/2023 8:30 AM CDT) Other (Other) Client Collect / Unknown 10/24/2023 8:30 AM CDT 10/24/2023 3:37 PM CDT Shazia Slaon MD LAB BILL ONLY [facility] [address] [place] [address], [place] * EP TECHNOLOGIST THIN PREP PAP SCREEN IMAGED (10/24/2023 8:30 AM CDT) Case Report Gynecologic Cytology Report ? Case: [id number] ? Authorizing Provider: ??Shazia Sloan MD ?Collected: ? 10/24/2023 0830 ? Ordering Location: ? [facility] ?Received: ?10/25/2023 0908 ? First Screen: ?Ayah Parada ? Specimen: ?EP TECHNOLOGIST ThinPrep Vial Screening, Cervical ? 11/02/2023 9:34 AM CDT [facility] INTERPRETATION/ RESULT NEGATIVE FOR INTRAEPITHELIAL LESION OR MALIGNANCY (NIL) (none) 11/02/2023 9:34 AM CDT [facility] IMEN ADEQUACY Satisfactory for evaluation Endocervical component present 11/02/2023 9:34 AM CDT [facility] HPV REQUEST HPV and PAP 11/02/2023 9:34 AM CDT [facility] Last Pap Date 06/26/2019 11/02/2023 9:34 AM CDT [facility] Abnormal Pap or Afton Bx in last 5 years No 11/02/2023 9:34 AM CDT [facility] Menstrual Status Hysterectomy-cerv ix present 11/02/2023 9:34 AM CDT [facility] Afton Bx Done Today No 11/02/2023 9:34 AM CDT [facility] Additional Information 11/02/2023 9:34 AM CDT [facility] Comment: Interpreted at [facility] - [address] [place] [address] [address] [address], [place] [address] Automated Review Successful 11/02/2023 9:34 AM CDT [facility] Comment:Specimen processed s uccessfully by automated community service patrol officer device, ThinPrep Imaging System, [employer] ANCILLARY TESTING EP TECHNOLOGIST HPV Ordered, Please see separate report 11/02/2023 9:34 AM CDT [facility] Note The pap test is a screening technique, not a diagnostic procedure. It is used primarily to screen for squamous cancers and precursor lesions. Published studies have shown that it is subject to both false negative and false positive results. The pap test should not be used as the sole means to diagnose or exclude pre-malignant and malignant lesions. 11/02/2023 9:34 AM CDT [facility] Other (Cervical) 10/24/2023 8:30 AM CDT 10/25/2023 9:08 AM CDT Shazia Sloan MD PATHOLOGY/CYTOLOGY [facility] [address] [place] [address], * HPV HIGH RISK (10/24/2023 8:30 AM CDT) TYPE 16 Negative Negative 10/27/2023 2:18 PM CDT [facility] TYPE 18 Negative Negative 10/27/2023 2:18 PM CDT [facility] OTHER HIGH RISK TYPES Negative Negative 10/27/2023 2:18 PM CDT [facility] Other (Cervical) 10/24/2023 8:30 AM CDT 10/25/2023 9:08 AM CDT Narrative [facility] 10/27/2023 2:18 PM CDT HPV types 16, 18, 31, 33, 35, 39, 45, 51, 52, 56, 58, 59, 66 and 68 DNA were undetectable or below the pre-set threshold. Methodology: Harry Mariah 4800 HPV Test Shazia Sloan MD MICROBIOLOGY [facility] [address] [place] [address], * SCAN-MAMMOGRAPHY REPORT (07/11/2008 12:00 AM SENIOR LEAD SOFTWARE ENGINEER) Anatomical Region Laterality Modality Other Narrative Procedure Note Scanner - 07/11/2008 12:00 AM SENIOR LEAD SOFTWARE ENGINEER Scanner OTHER from Last 3 Months or Most Recently Relevant to Health Maintenance Advance Directives * Full Code (Latest Code Status on File) Date Activated Date Inactivated Comments 05/19/2020 6:13 PM 05/22/2020 12:41 PM Question Answer Comments Code Status Discussion: Per Existing Order Care Teams Foil Cutter Relationship Specialty Start Date End Date Shazia Sloan MD [address] [place] [id number] PCP - General Internal Medicine 12/26/14
--- OUTSIDE RECORDS SUMMARY | 2024-01-13 07:47 | XMS_ITS | Referral Summary ---
Author Organization [facility] Address [address] [place] [address] Care Team Providers Care Bilingual Research Interviewer Name Role Phone Unavailable Primary Care Provider Unavailabl e Source Comments Patient records contain information from all sites at [facility]. For routine questions regarding patient records, call [phone] during business hours, M-F 8:00 AM - 5:00 PM Central Time. Record requests for emergency care only can be directed to [phone] at any time.[facility] Encounters Date Type Department Care Team Description 11/08/2023 3:15 PM CDT Office Visit Department of Dermatology in [address] [id number] Olu Riojas M.D. Nevi Multiple (Primary Dx); Keratosis Seborrheic Discharge Disposition: Home or Self Care from Last 3 Months Allergies Active Allergy Reactions Criticality Noted Date [...] 12.5 Half tablet at night 04/12/2021 Active Social History Tobacco Use Types Packs/Day Years Used Date Smoking Tobacco: Former Smokeless Tobacco: Never Alcohol Use Standard Drinks/Week Comments Yes 2 (1 standard drink = 0.6 oz pur e alcohol) [facility] Utilities Answer Date Recorded In the past 12 months has e [employer], [employer]ood[employer], oil, or water [employer] threatened to shut off services in your [...] How often do you attend chur or holiness services? More than 4 times per year 06/16/2021 Do you belong to any clubs o r organizations such as rastafarian groups, unions, fraternal or athletic groups, or [...] care, and heating? Not very hard 06/16/2021 [facility] [...] your living situation today? I have a [facility] children's place to live 11/08/2023 Education Answer Date Recorded What is the highest level of school you have completed or the highest degree you have received? Some college, no degree 01/19/2021 Sex and Gender Information Value Date Recorded Sex Assigned at Female 03/27/2020 6:44 AM SHEET METAL WORKER MAINTENANCE Gender Identity Female 03/27/2020 6:44 AM SHEET METAL WORKER MAINTENANCE Sexual Orientation Straight 03/27/2020 6: 44 AM SHEET METAL WORKER MAINTENANCE Plan of Treatment Not on file
--- OUTSIDE RECORDS SUMMARY | 2024-01-13 07:47 | XMS_ITS ---
Author Organization [facility] Address [address] [place] [address] Care Team Providers Care Side Stitching Machine Operator Name Role Phone Unavailable Unavailable Unavailable Surgery Details Not on file Complications Check Surgery Details section. Procedure Estimated Blood Loss Check Surgery Details section. Procedure Findings Check Surgery Details section. Procedure Specimens Taken Check Surgery Details section.
--- OUTSIDE RECORDS SUMMARY | 2024-01-13 07:47 | XMS_ITS | Continuity of Care Document ---
Author Organization [facility] Address [address] [place] [address] Phone Care Team Providers Care Supervisor Sunglasses Name Role Phone Gricel WINKLER, PhD, Greg [...] C, [address], [place], [place], [id number], [place] tel:[phone] [facility] Arthrodesis status 2 Gricel Garza. [facility], [address], [place], [address], [place]. [phone] Referring Provider: Aleks García, [facility], [place], [address]. tel:[phone] Office/Outpat ient Visit,Est, Mod [facility] C, [address], [place], [place], [id number], [place] tel:[phone] [facility] Arthrodesis status 1 Gricel Garza. [facility], [address], [place], [address], [place]. tel:[phone] Referring Provider: [facility], [place], [address]. tel:[phone] Office/Outpat ient Visit,Est, Mod [facility], [address], [place], [place], [id number], [place] tel:[phone] [facility] Arthrodesis status 1 Gricel Garza. [facility], [address], [place], [address], [place]. tel:[phone] Referring Provider: Kwabena HsiehZ [facility], [place], [address]. tel:[phone] [facility], [address], [place], [place], [id number], [place] tel:[phone] [facility] Arthrodesis status 1 Gricel Garza. [facility], [address], [place], [address], [place]. tel:[phone] Referring Provider: Giovanni Hsieh [facility], [place], [address]. tel:[phone] [facility], [address], [place], [place], [id number], [place] tel:[phone] [facility] No Information 0 Gricel Garza. [facility], [address], [place], [address], [place]. tel:[phone] Referring Provider: Giovanni Hsieh [address] [employer] [address], [place], [address]. tel:[phone] Pre Op Office/Outpat ient Visit, [facility], [address], [place], [place], [id number], [place] tel:[phone] [facility] Spinal stenosis, lumbar region with neurogenic claudication 0 Gricel Garza. [facility], [address], [place], [address], [place]. [phone] Referring Provider: Giovanni Hsieh [facility], [place], [address]. tel:[phone] [facility], [address], [place], [place], [id number], [place] tel:[phone] [facility] No Information 0 Gricel Garza. [facility], [address], [place], [address], [place]. [phone] Referring Provider: Giovanni Hsieh [facility], [place], [address]. tel:[phone] OFFICE/OUTPAT IENT VISIT EST Phone [facility], [address], [place], [place], [id number], [place] tel:[phone] [facility] No Information 0 Gricel Garza. [facility], [address], [place], [address], [place]. tel:[phone] Referring Provider: Aleks García, [facility] [address] , [place], [address]. tel:[phone] Office/Outpat ient Visit,New, Mod [facility], [address], [place], [id number], [place] tel:[phone] [facility] Radiculopathy , lumbar region 0 Gricel Garza. [facility], [address], [place], [address], [place]. tel:[phone] Referring Provider: Aleks García [facility] [address] , [place], [address]. tel:[phone] Family History Family Member Type Diagnosis Age At Onset No Information Payers Payer name Insurance type Covered green party ID Pro wise(s) [facility] [id number] Social History Type Description Quantity Date Captured [...]
--- NOTE | 2024-01-13 08:15 | CRLHL7_ITS ---
For Patients: As a result of the Century Cures Act, medical imaging exams and procedure reports are released immediately into your electronic medical record. You may view this report before your referring provider. If you have questions, please contact your health care provider. BILATERAL SCREENING MAMMOGRAM WITH COMPUTER-AIDED DETECTION AND TOMOSYNTHESIS TECHNIQUE: CC and MLO views were obtained. These mammographic images have been obtained using full-field digital technique. These mammographic images were interpreted with the benefit of computer-aided detection. Breast Tomosynthesis was used in this interpretation. COMPARISON FILM: 11/01/22, 05/05/21, 06/26/19. FINDINGS: There are scattered areas of fibroglandular density IMPRESSION: There is no radiographic evidence for malignancy. ASSESSMENT: BI-RADS Category 2: Benign RECOMMENDATION: Routine screening mammogram in 1 year. A lay language report of this examination will be provided to the patient. Marc Castañeda M.D. Diagnostic Radiologist [email or web address] CHRISTI/Dictated by: Marc Castañeda MD @ 01/13/2024 11:10:00 AM (Electronically Signed)
== END 2024-01-13 07:46 | disposition home or self-care (01) ==
LOC: MAMMO 07:45
PROVIDERS: PCP Internal Medicine; Visit Provider Internal Medicine
DX: Z12.31 Encounter for screening mammogram for malignant neoplasm of breast (principal)
CPT/HCPCS: 77063; 77067

== ENCOUNTER 2025-01-24 14:53 | Outpatient (CLI) | payer OTHER, SELFPAY ==
--- NOTE | 2025-01-24 15:30 | XR_ITS ---
Patient: MAHI SEO Facility:?[facility] Patient ID:?[id number] Site Patient ID:?[id number]. Site :?1965 Study:?DEXA-Bone Density LUMBAR SPINE, FOREARM BILAT HIPS-01/24/2025 8:51:02 AM Ordering Physician:YADIRA MARX Final Report: DXA BONE MINERAL DENSITY STUDY Current height (in): 65. Weight (lb): 200. Menopause age: 45. Ethnicity: White. 1. Have you had a previous hip or vertebral fracture? No. 2. Have you had any fractures during your adult life which did not result from significant trauma (e.g., auto accident)? No. 3. Did either of your parents have a hip fracture? Yes. 4. Do you smoke? No. 5. Have you ever taken Glucocorticoids? Yes. 6. Do you have rheumatoid arthritis? No. 7. Do you have secondary osteoporosis? No. 8. Do you drink 3 or more alcoholic drinks per day? No. 9. Are you being treated for osteoporosis? No. 10. Have you ever taken any of the following medications: ANSWER: Yes, Vitamin D. 11. Do you have any of the following medical conditions: Anorexia or bulimia, asthma or emphysema, end stage renal disease, hyperparathyroidism, any seizure disorders, cancer, inflammatory bowel diseases, hysterectomy, other ? please specify. ANSWER: Yes, Inflammatory bowel disease and hysterectomy. TECHNIQUE: Bone mineral density study was performed using the [employer] Wi. FINDINGS: The results of the study expressed as bone mineral density (BMD) are as follows: Lumbar spine L1 to L2: BMD: 1.002 g/cm2. T-score: 0.2. Z-score: 1.5. Neck Left: BMD: 0.612 g/cm2. T-score: -2.1. Z-score: -0.9. Right: BMD: 0.653 g/cm2. T-score: -1.8. Z-score: -0.5. Total Left: BMD: 0.752 g/cm2. T-score: -1.6. Z-score: -0.6. Right: BMD: 0.838 g/cm2. T-score: -0.9. Z-score: 0.1. Radius Left BMD: 0.643 g/cm2. T-score: -0.8. Z-score: 1.0. IMPRESSION: Osteopenia. FRAX 10-year Fracture Risk Major Osteoporotic Fracture: 27 percent Hip Fracture: 2.2 percent Reported Risk Factors: [place] () Neck BMD=0.612, BMI=33.3, parental fracture, glucocorticoids. Marc Castañeda M.D. Diagnostic Radiologist [email or web address] LINCOLN/kelley DW/Dictated by: Marc Castañeda MD @ 01/25/2025 3:51:00 PM Signed by:Ruthie Castañeda MD @01/27/2025 5:58:41 AM (Electronic Signature)
== END 2025-01-24 14:54 | disposition home or self-care (01) ==
LOC: RAD 14:53
PROVIDERS: PCP Internal Medicine; Visit Provider Orthopaedic Surgery Orthopaedic Surgery of the Spine
DX: Z78.0 Asymptomatic menopausal state (principal); M85.89 Other specified disorders of bone density and structure, multiple sites; M48.56XA Collapsed vertebra, not elsewhere classified, lumbar region, initial encounter for fracture
CPT/HCPCS: 77080; 80061; 82306; 82947

== ENCOUNTER 2025-01-25 08:02 | Outpatient (CLI) | payer OTHER, SELFPAY ==
--- NOTE | 2025-01-25 08:15 | CRLHL7_ITS ---
For Patients: As a result of the Century Cures Act, medical imaging exams and procedure reports are released immediately into your electronic medical record. You may view this report before your referring provider. If you have questions, please contact your health care provider. INDICATION: Abnormal reflexes. Gait imbalance. Collar Separator problems. TECHNIQUE: Sagittal T1 sagittal and axial T2 and sagittal STIR images. FINDINGS: Absence of usual upper cervical lordosis. Multilevel spondylosis superimposed on congenitally narrowed spinal canal. The lower brainstem cervical and upper thoracic spinal cord otherwise appear normal. No stenosis of the foramen magnum level C1 or C2. At C2-3 no disc herniation central or lateral stenosis. At C3-4 mild circumferential disc bulging results in mild central stenosis without spinal cord compression. The neural foramen are adequately patent. At C4-5 shallow left paracentral disc protrusion osteophyte complex causes mild ventral spinal cord deformity without juan a cord compression. There is moderate right and mild left-sided neural foraminal narrowing. At C5-6 circumferential disc bulging and marginal spurring. There is right posterior lateral disc protrusion osteophyte complex with right foraminal narrowing. Potential compression of the exiting right C6 nerve root. At C6-7 degenerative disc space narrowing circumferential disc bulging and marginal spur formation and thickening of the dorsal ligamentum flavum results in mild central stenosis. Mild to moderate bilateral foraminal narrowing. At C7-T1 no disc herniation central or lateral stenosis. IMPRESSION: 1. 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 [id number] central spinal stenosis at C4-5 and at C6-7 without spinal cord compression. Normal cervical cord signal. 2. At C4-5 left paracentral disc osteophyte complex contacts the ventral cord surface. 3. At C5-6 right posterolateral disc protrusion osteophyte, right foraminal narrowing and probable impingement of right C6 nerve root. 4. At C6-7 mild to moderate bilateral foraminal narrowing. Dictated by Mehrdad Holly MD @ 01/25/2025 4:49:21 PM (Electronically Signed)
== END 2025-01-25 08:03 | disposition home or self-care (01) ==
LOC: MRI 08:03
PROVIDERS: PCP Internal Medicine; Visit Provider Orthopaedic Surgery Orthopaedic Surgery of the Spine
DX: R26.9 Unspecified abnormalities of gait and mobility (principal); M48.02 Spinal stenosis, cervical region; M47.892 Other spondylosis, cervical region; M50.222 Other cervical disc displacement at C5-C6 level; M50.223 Other cervical disc displacement at C6-C7 level
CPT/HCPCS: 72141

== ENCOUNTER 2025-03-19 17:51 | Outpatient (CLI) | payer OTHER, SELFPAY ==
--- NOTE | 2025-03-19 18:40 | CRLHL7_ITS ---
For Patients: As a result of the Century Cures Act, medical imaging exams and procedure reports are released immediately into your electronic medical record. You may view this report before your referring provider. If you have questions, please contact your health care provider. INDICATION: BILATERAL SCREENING MAMMOGRAM, ASYMPTOMATIC 59 Y/O FEMALE COMPARISON: 01/13/2024, 11/01/2022, 05/05/2021 TECHNIQUE: Digital mammogram in CC and MLO projections including computer-aided detection (CAD) and tomosynthesis. BREAST COMPOSITION: There are scattered areas of fibroglandular density. FINDINGS: No suspicious findings. ASSESSMENT: BI-RADS 1 Negative RECOMMENDATION: Annual screening mammogram. A lay language report of this examination will be provided to the patient. Dictated by: Marc Castañeda MD @ 03/20/2025 10:05:39 (Electronically Signed)
== END 2025-03-19 17:52 | disposition home or self-care (01) ==
LOC: MAMMO 17:51
PROVIDERS: PCP Internal Medicine; Visit Provider Internal Medicine
DX: Z12.31 Encounter for screening mammogram for malignant neoplasm of breast (principal)
CPT/HCPCS: 77063; 77067